=== PATIENT | female | born 1975 | race Caucasian/White ===

== ENCOUNTER 2024-01-22 12:21 | Outpatient (CLI) | payer BC | END 2024-01-22 12:22 | disposition home or self-care (01) | LOC: CSHRAD 12:21 | PROVIDERS: ATTEND Family Medicine | DX: R22.1 Localized swelling, mass and lump, neck (principal); R94.6 Abnormal results of thyroid function studies; E04.2 Nontoxic multinodular goiter | CPT/HCPCS: 76536 ==

== ENCOUNTER 2024-08-19 14:09 | Outpatient (CLI) | payer BC | END 2024-08-19 14:10 | disposition home or self-care (01) | LOC: CSHULT 14:09 | PROVIDERS: ATTEND Otolaryngology | DX: E04.1 Nontoxic single thyroid nodule (principal); E04.9 Nontoxic goiter, unspecified | CPT/HCPCS: 76536 ==

== ENCOUNTER 2025-03-03 15:52 | Outpatient (CLI) | payer BC | END 2025-03-03 15:53 | disposition home or self-care (01) | LOC: CSHULT 15:52 | PROVIDERS: ATTEND Otolaryngology | DX: E04.1 Nontoxic single thyroid nodule (principal); E04.2 Nontoxic multinodular goiter | CPT/HCPCS: 76536 ==

== ENCOUNTER 2025-04-03 12:46 | Day surgery (SDC) | payer BC ==
[2025-04-03] MEDS ORDERED: Sodium Bicarbonate 2.5 MEQ/5 ML SDV ONE (13:21)
[2025-04-03 13:56] VITALS: BP 128/89; TEMP 98.1
== END 2025-04-03 13:50 | disposition home or self-care (01) ==
LOC: CSHULT 12:46
PROVIDERS: ATTEND Otolaryngology
PROC: 0G9G3ZX Drainage of Left Thyroid Gland Lobe, Percutaneous Approach, Diagnostic (ICD-10-PCS; principal; 2025-04-03)
DX: E04.2 Nontoxic multinodular goiter (principal)
CPT/HCPCS: 10005; 88173